=== PATIENT | male | born 1985 | race African-American/Black ===

== ENCOUNTER 2018-05-29 15:36 | Emergency (ER) | payer MEDICAID ==
[~2018-05-29] VITALS: Ht 182.9 cm; Wt 118.6 kg
[2018-05-29 15:53] VITALS: BP 145/80
--- NOTE | 2018-05-29 16:28 | NUR ---
PT AMBULATES TO BED 3
--- NOTE | 2018-05-29 16:40 | NUR ---
PT. CAME INTO THE ED DUE TO L INDEX FINGER LACERATION X 3PM TODAY. PT. STATES " I WAS CUTTING SOME BREAD AND I CUT MYSELF AND IT WOULDNT STOP BLEEDING". PT. HAS HALF AN INCH LACERATION IN L INDEX FINGER IN CUTICLE AREA, BLEEDING CONTROLLED. PT. STATES " I HAD MY TDAP VACCINE MORE THAN 5 YEARS AGO". 12/17 STINGING BURNING PAIN THAT IS NON RADIATING IN L INDEX FINGER LACERATION. ER MD NOTIFIED. WILL CONTINUE TO MONITOR.
--- NOTE | 2018-05-29 17:30 | NUR ---
PT.R ESTING COMFORTABLY IN BED, RR EVEN AND UNLABORED. BED IN LOWEST POSITION.
[2018-05-29 18:20] VITALS: BP 146/76
--- NOTE | 2018-05-29 18:20 | NUR ---
Patient discharged with v/s stable. Written and verbal after care instructions given and explained. Patient alert, oriented and verbalized understanding of instructions. Ambulatory with steady gait. All questions addressed prior to discharge. ID band removed. Patient advised to follow up with PMD. Rx of IBUPROFEN 600MG given. Patient educated on indication of medication including possible reaction and side effects. Opportunity to ask questions provided and answered.
== END 2018-05-29 18:20 | disposition home or self-care (01) ==
LOC: MED 15:36 → EDSEX 15:36 → MED 18:20
DX: S61.211A Laceration without foreign body of left index finger without damage to nail, initial encounter (principal); W45.8XXA Other foreign body or object entering through skin, initial encounter; Y93.89 Activity, other specified; Y92.89 Other specified places as the place of occurrence of the external cause; Y99.8 Other external cause status
CPT/HCPCS: 12001; 90471; 90715; 99283